=== PATIENT | male | born 1960 | race Caucasian/White ===

== ENCOUNTER 2020-08-13 11:50 | Inpatient (IN) | payer MEDICAID ==
[~2020-08-13] VITALS: Ht 165.1 cm; Wt 81.6 kg
[2020-08-13] MEDS ORDERED: CEFTRIAXONE 1 G PREMIX 50 ML IV ONE (12:30)
[2020-08-13] MEDS ORDERED: AZITHROMYCIN 500 MG in DEXT 5% WATER 250 ML IV ONE (12:30)
[2020-08-13] MEDS ORDERED: SODIUM CHLORIDE 0.9% 1,000 ML IV ONE (12:30)
[2020-08-13 13:22] LABS: HEMATOCRIT. 44.5 % (42.0-52.0); HEMOGLOBIN. 14.9 g/dL (14.0-18.0); MEAN CORPUSCULAR HEMOGLOBIN 31.2 pg (28.0-32.0); MEAN PLATELET VOLUME 10.3 fl (7.4-10.4); PLATELET 238 x1000/uL (130-400); RED BLOOD CELL COUNT 4.79 mill/uL (4.7-6.1); RED CELL DISTRIBUTION WIDTH 12.9 % (11.6-14.6)
[2020-08-13 13:25] LABS: CHLORIDE 103 mEq/L (98-107)
[2020-08-13 13:42] LABS: INR 1.1; PROTHROMBIN TIME 11.1 sec (9.6-11.0)
[2020-08-13 14:23] LABS: ATYPICAL LYMPHOCYTES 1; PLATELET ESTIMATE NORMAL
[2020-08-13 14:48] LABS: BG BASE EXCESS 1.4 mmol/L (-2.0-2.0); BG CARBOXYHEMOGLOBIN 0.5 % (0.5-1.5); BG DEOXYHEMOGLOBIN 1.3 % (0.0-5.0); BG FRACTION INSPIRED OXYGEN 100; BG HCO3 ACT 25.1 mmol/L (22.0-26.0); BG METHEMOGLOBIN 0.2 % (0.0-1.5); BG OXYGEN SATURATION 98.7 % (92.0-98.5); BG PCO2 37.1 mmHg (35.0-45.0); BG PH 7.448 (7.350-7.450); BG PO2 149.3 mmHg (75.0-100.0); BG SAMPLE SITE RIGHT RADIAL; BG TOTAL HEMOGLOBIN 15.5 g/dL (12.0-18.0); BG VENT MODE MASK - NRB
[2020-08-13] MEDS ORDERED: DEXAMETHASONE 4MG/ML 1ML VIAL IV ONE (16:30)
[2020-08-14 15:00] VITALS: BP 138/83
[2020-08-14] MEDS ORDERED: ALBUTEROL 6.7GM HFA INHALER ORI PRN (15:45)
[2020-08-14] MEDS ORDERED: ACETAMINOPHEN 325MG TABLET PO PRN ×2 (15:45)
[2020-08-14] MEDS ORDERED: CLONIDINE 0.1MG TABLET PO PRN (15:45)
[2020-08-14] MEDS ORDERED: DOCUSATE SODIUM 100MG CAPSULE PO PRN (15:45)
[2020-08-14] MEDS ORDERED: MAGNESIUM/ALUMINUM HYDROXIDE/SIMETHICONE 30ML UDC PO PRN (15:45)
[2020-08-14] MEDS ORDERED: GUAIFENESIN 200MG/10ML SUGAR FREE UDC PO PRN (15:45)
[2020-08-14] MEDS ORDERED: NA PHOS,M-B/NA PHOS,DI-BA ENEMA 118ML PR PRN (15:45)
[2020-08-14] MEDS ORDERED: NITROGLYCERIN 0.4MG TABLET SL SL PRN (15:45)
[2020-08-14] MEDS ORDERED: CEFTRIAXONE 1 G PREMIX 50 ML IV SCH (15:45)
[2020-08-14] MEDS ORDERED: ONDANSETRON HCL 4MG/2ML INJ IV PRN (15:45)
[2020-08-14] MEDS ORDERED: KETOROLAC 30MG/ML VIAL IV PRN (15:45)
[2020-08-14] MEDS ORDERED: AZITHROMYCIN 500 MG in DEXT 5% WATER 250 ML IV SCH (16:00)
[2020-08-14] MEDS: DEXAMETHASONE 10 MG/ML VIAL IV SCH (17:22)
[2020-08-14] MEDS: ENOXAPARIN 40MG/0.4ML SYR SUBCUT SCH (17:22)
[2020-08-14] MEDS: CEFTRIAXONE 1,000 MG in DEXTROSE 5% WATER 50 ML IV SCH (17:22)
[2020-08-14] MEDS ORDERED: COLC0.6C3 PO (17:48)
[2020-08-14] MEDS ORDERED: ALLO100T PO (17:48)
[2020-08-14] MEDS: AZITHROMYCIN 500 MG in DEXT 5% WATER 250 ML IV SCH (18:01)
[2020-08-14 20:00] VITALS: BP 108/69
[2020-08-14] MEDS: FAMOTIDINE 20MG TABLET PO SCH (20:53)
[2020-08-14] MEDS: GUAIFENESIN 600MG ER TABLET PO SCH (20:53)
[2020-08-14] MEDS: ASCORBIC ACID 500 MG TABLET PO SCH (20:53)
[2020-08-14] MEDS: ALBUTEROL 6.7GM HFA INHALER ORI SCH (21:00)
[2020-08-14] MEDS ORDERED: ZOLPIDEM TARTRATE 5MG TABLET PO PRN (21:00)
[2020-08-15] VITALS: BP 126/73
[2020-08-15 01:27] LABS: LDL CHOLESTEROL 123 mg/dL (5-100)
[2020-08-15 01:29] LABS: HDL CHOLESTEROL 29 mg/dL (40-59)
[2020-08-15 01:31] LABS: CREATINE KINASE MB FRACTION < 1.0 ng/mL (0.5-3.6)
[2020-08-15] MEDS: ALBUTEROL 6.7GM HFA INHALER ORI SCH ×4 (03:00→23:36)
[2020-08-15 04:00] VITALS: BP 127/74
[2020-08-15 07:58] LABS: CREATINE KINASE MB FRACTION < 1.0 ng/mL (0.5-3.6)
[2020-08-15 08:00] VITALS: BP 123/78
[2020-08-15] MEDS: GUAIFENESIN 600MG ER TABLET PO SCH ×2 (08:09→22:22)
[2020-08-15] MEDS: ASPIRIN 325MG EC TABLET PO SCH (08:09)
[2020-08-15] MEDS: FAMOTIDINE 20MG TABLET PO SCH ×2 (08:09→22:22)
[2020-08-15] MEDS: ZINC SULFATE 220 MG ( 50 ) CAPSULE PO SCH (08:09)
[2020-08-15] MEDS: ASCORBIC ACID 500 MG TABLET PO SCH ×2 (08:09→22:22)
[2020-08-15] MEDS: DEXAMETHASONE 10 MG/ML VIAL IV SCH (08:10)
[2020-08-15 12:00] VITALS: BP 136/81
[2020-08-15] MEDS: ENOXAPARIN 40MG/0.4ML SYR SUBCUT SCH (15:33)
[2020-08-15 16:00] VITALS: BP 137/76
[2020-08-15] MEDS: CEFTRIAXONE 1,000 MG in DEXTROSE 5% WATER 50 ML IV SCH (16:46)
[2020-08-15] MEDS: AZITHROMYCIN 500 MG in DEXT 5% WATER 250 ML IV SCH (18:10)
[2020-08-15 20:00] VITALS: BP 119/74
[2020-08-16] VITALS: BP 117/71
[2020-08-16] MEDS: ALBUTEROL 6.7GM HFA INHALER ORI SCH ×4 (03:52→20:41)
[2020-08-16 04:00] VITALS: BP 127/77
[2020-08-16 08:00] VITALS: BP 129/74
[2020-08-16] MEDS: DEXAMETHASONE 10 MG/ML VIAL IV SCH (09:08)
[2020-08-16] MEDS: ZINC SULFATE 220 MG ( 50 ) CAPSULE PO SCH (09:08)
[2020-08-16] MEDS: ASCORBIC ACID 500 MG TABLET PO SCH ×2 (09:08→20:41)
[2020-08-16] MEDS: FAMOTIDINE 20MG TABLET PO SCH ×2 (09:08→20:41)
[2020-08-16] MEDS: GUAIFENESIN 600MG ER TABLET PO SCH ×2 (09:08→20:41)
[2020-08-16] MEDS: ASPIRIN 325MG EC TABLET PO SCH (09:10)
[2020-08-16 12:00] VITALS: BP 124/77
[2020-08-16 16:00] VITALS: BP 132/76
[2020-08-16] MEDS: ENOXAPARIN 40MG/0.4ML SYR SUBCUT SCH (16:19)
[2020-08-16] MEDS: CEFTRIAXONE 1,000 MG in DEXTROSE 5% WATER 50 ML IV SCH (16:20)
[2020-08-16] MEDS: AZITHROMYCIN 500 MG in DEXT 5% WATER 250 ML IV SCH (17:07)
[2020-08-16 20:00] VITALS: BP 107/69
[2020-08-17] VITALS: BP 122/73
[2020-08-17] MEDS: ALBUTEROL 6.7GM HFA INHALER ORI SCH ×4 (03:47→21:44)
[2020-08-17 04:00] VITALS: BP 124/70
[2020-08-17 08:00] VITALS: BP 124/74
[2020-08-17] MEDS: DEXAMETHASONE 10 MG/ML VIAL IV SCH (08:56)
[2020-08-17] MEDS: FAMOTIDINE 20MG TABLET PO SCH ×2 (08:56→21:43)
[2020-08-17] MEDS: GUAIFENESIN 600MG ER TABLET PO SCH ×2 (08:56→21:43)
[2020-08-17] MEDS: ASPIRIN 325MG EC TABLET PO SCH (08:56)
[2020-08-17] MEDS: ASCORBIC ACID 500 MG TABLET PO SCH ×2 (08:56→21:42)
[2020-08-17] MEDS: ZINC SULFATE 220 MG ( 50 ) CAPSULE PO SCH (08:56)
[2020-08-17] MEDS ORDERED: DEXTROSE 50% WATER 50ML SYRINGE IV PRN (09:00)
[2020-08-17] MEDS: BLOOD SUGAR DIAGNOSTIC STRIP TEST SCH ×3 (11:40→21:57)
[2020-08-17 12:00] VITALS: BP 112/69
[2020-08-17] MEDS: INSULIN LISPRO 100 UNITS/ML SUBCUT SCH ×3 (13:51→21:56)
[2020-08-17 16:00] VITALS: BP 120/73
[2020-08-17] MEDS: CEFTRIAXONE 1,000 MG in DEXTROSE 5% WATER 50 ML IV SCH (18:38)
[2020-08-17] MEDS: ENOXAPARIN 40MG/0.4ML SYR SUBCUT SCH (18:38)
[2020-08-17 20:00] VITALS: BP 118/78
[2020-08-17] MEDS: AZITHROMYCIN 500 MG in DEXT 5% WATER 250 ML IV SCH (21:44)
[2020-08-18] VITALS: BP 141/83
[2020-08-18] MEDS: ALBUTEROL 6.7GM HFA INHALER ORI SCH ×4 (03:43→22:57)
[2020-08-18 04:00] VITALS: BP 119/77
[2020-08-18] MEDS: BLOOD SUGAR DIAGNOSTIC STRIP TEST SCH ×4 (06:32→21:00)
[2020-08-18] MEDS: INSULIN LISPRO 100 UNITS/ML SUBCUT SCH ×4 (06:32→22:55)
[2020-08-18 08:00] VITALS: BP 114/72
[2020-08-18] MEDS: ASCORBIC ACID 500 MG TABLET PO SCH ×2 (09:05→22:54)
[2020-08-18] MEDS: FAMOTIDINE 20MG TABLET PO SCH ×2 (09:05→22:54)
[2020-08-18] MEDS: ASPIRIN 325MG EC TABLET PO SCH (09:05)
[2020-08-18] MEDS: DEXAMETHASONE 10 MG/ML VIAL IV SCH (09:05)
[2020-08-18] MEDS: GUAIFENESIN 600MG ER TABLET PO SCH ×2 (09:05→22:54)
[2020-08-18] MEDS: ZINC SULFATE 220 MG ( 50 ) CAPSULE PO SCH (09:05)
[2020-08-18 12:00] VITALS: BP 116/71
[2020-08-18 16:00] VITALS: BP 111/70
[2020-08-18] MEDS: CEFTRIAXONE 1,000 MG in DEXTROSE 5% WATER 50 ML IV SCH (16:00)
[2020-08-18] MEDS: ENOXAPARIN 40MG/0.4ML SYR SUBCUT SCH (16:01)
[2020-08-18 20:00] VITALS: BP 112/70
[2020-08-19] VITALS: BP 112/75
[2020-08-19] MEDS: ALBUTEROL 6.7GM HFA INHALER ORI SCH ×4 (03:09→23:34)
[2020-08-19 04:00] VITALS: BP 106/74
[2020-08-19] MEDS: BLOOD SUGAR DIAGNOSTIC STRIP TEST SCH ×4 (07:21→21:00)
[2020-08-19 08:00] VITALS: BP 105/58
[2020-08-19] MEDS: INSULIN LISPRO 100 UNITS/ML SUBCUT SCH ×4 (08:56→23:21)
[2020-08-19] MEDS: DEXAMETHASONE 10 MG/ML VIAL IV SCH (08:57)
[2020-08-19] MEDS: GUAIFENESIN 600MG ER TABLET PO SCH ×2 (08:57→23:21)
[2020-08-19] MEDS: ASPIRIN 325MG EC TABLET PO SCH (08:57)
[2020-08-19] MEDS: ASCORBIC ACID 500 MG TABLET PO SCH ×2 (08:57→23:21)
[2020-08-19] MEDS: FAMOTIDINE 20MG TABLET PO SCH ×2 (08:57→23:21)
[2020-08-19] MEDS: ZINC SULFATE 220 MG ( 50 ) CAPSULE PO SCH (08:57)
[2020-08-19 12:00] VITALS: BP 92/55
[2020-08-19] MEDS: ENOXAPARIN 40MG/0.4ML SYR SUBCUT SCH (15:38)
[2020-08-19 16:00] VITALS: BP 127/72
[2020-08-19] MEDS: CEFTRIAXONE 1,000 MG in DEXTROSE 5% WATER 50 ML IV SCH (17:10)
[2020-08-19 20:00] VITALS: BP 103/69
[2020-08-20] VITALS (7 sets, daily range): BP systolic 106–126; BP diastolic 61–79
[2020-08-20] MEDS: ALBUTEROL 6.7GM HFA INHALER ORI SCH ×4 (03:05→20:26)
[2020-08-20] MEDS: BLOOD SUGAR DIAGNOSTIC STRIP TEST SCH ×4 (06:55→20:26)
[2020-08-20] MEDS: INSULIN LISPRO 100 UNITS/ML SUBCUT SCH ×4 (07:10→20:27)
[2020-08-20] MEDS: DEXAMETHASONE 10 MG/ML VIAL IV SCH (08:51)
[2020-08-20] MEDS: ZINC SULFATE 220 MG ( 50 ) CAPSULE PO SCH (09:01)
[2020-08-20] MEDS: GUAIFENESIN 600MG ER TABLET PO SCH ×2 (09:01→20:26)
[2020-08-20] MEDS: FAMOTIDINE 20MG TABLET PO SCH ×2 (09:01→20:26)
[2020-08-20] MEDS: ASCORBIC ACID 500 MG TABLET PO SCH ×2 (09:01→20:26)
[2020-08-20] MEDS: ASPIRIN 325MG EC TABLET PO SCH (09:01)
[2020-08-20] MEDS: AZITHROMYCIN 500 MG TABLET PO SCH (13:22)
[2020-08-20] MEDS: ENOXAPARIN 40MG/0.4ML SYR SUBCUT SCH (17:51)
[2020-08-20 21:03] LABS: CHLORIDE 104 mEq/L (98-107)
[2020-08-21] MEDS: BLOOD SUGAR DIAGNOSTIC STRIP TEST SCH ×2 (06:25→11:55)
[2020-08-21] MEDS: ALBUTEROL 6.7GM HFA INHALER ORI SCH (06:27)
[2020-08-21 06:59] LABS: HEMATOCRIT. 45.4 % (42.0-52.0); HEMOGLOBIN. 15.3 g/dL (14.0-18.0); MEAN CORPUSCULAR HEMOGLOBIN 31.4 pg (28.0-32.0); MEAN CORPUSCULAR VOLUME 92.8 fL (80.0-94.0); MEAN PLATELET VOLUME 9.9 fl (7.4-10.4); PLATELET 322 x1000/uL (130-400); RED BLOOD CELL COUNT 4.89 mill/uL (4.7-6.1); RED CELL DISTRIBUTION WIDTH 13.1 % (11.6-14.6)
[2020-08-21 08:30] VITALS: BP 118/72
[2020-08-21] MEDS: ZINC SULFATE 220 MG ( 50 ) CAPSULE PO SCH (10:20)
[2020-08-21] MEDS: AZITHROMYCIN 500 MG TABLET PO SCH (10:20)
[2020-08-21] MEDS: GUAIFENESIN 600MG ER TABLET PO SCH (10:20)
[2020-08-21] MEDS: ASPIRIN 325MG EC TABLET PO SCH (10:20)
[2020-08-21] MEDS: ASCORBIC ACID 500 MG TABLET PO SCH (10:21)
[2020-08-21] MEDS: FAMOTIDINE 20MG TABLET PO SCH (10:21)
[2020-08-21] MEDS: DEXAMETHASONE 10 MG/ML VIAL IV SCH (10:21)
[2020-08-21] MEDS: INSULIN LISPRO 100 UNITS/ML SUBCUT SCH ×2 (10:28→12:23)
[2020-08-21 13:41] VITALS: BP 118/72
[2020-08-21 14:12] LABS: PLATELET ESTIMATE NORMAL
== END 2020-08-21 15:10 | disposition home or self-care (01) | DRG 137 ==
LOC: ER 11:57 → 7EST 16:21 → ENRESERV 08-14 13:30 → 6WST 08-20 22:30
PROVIDERS: ADMIT Internal Medicine; ATTEND Internal Medicine
DX: U07.1 COVID-19 (principal); J96.01 Acute respiratory failure with hypoxia; E43 Unspecified severe protein-calorie malnutrition; E87.1 Hypo-osmolality and hyponatremia; Z86.16 Personal history of COVID-19; E11.9 Type 2 diabetes mellitus without complications; J12.82 Pneumonia due to coronavirus disease 2019; Z68.30 Body mass index [BMI] 30.0-30.9, adult
CPT/HCPCS: 36415; 36600; 71045; 80048; 80053; 80061; 82375; 82553; 82805; 82962; 83036; 83605; 84145; 84484; 85025; 87635; 93005; 93970; 99291; J0456; J0696; J1100; J1650; J1815; J7030; J7060